=== PATIENT | female | born 1970 | race African-American/Black ===

== ENCOUNTER 2017-02-05 15:22 | Emergency (ER) | payer MEDICARE, OTHER ==
--- NOTE | ~2017-02-05 | CR206 ---
[facility] A Service of [facility] & [facility] RADIOLOGY TEXT RESULTS PATIENT: PARIS LÓPEZ LOCATION: [facility] : 72 UNIT #: [id number] AGE: [address]: Yash Chong MD SEX: F ORDER DR: [id number] [facility] [address] [place], [place] [address] [id number] E MR#: [id number] Acc #: [id number] NAME: PARIS LÓPEZ. : 1970 SEX: F STUDY DATE/TIME: 02/05/2017 15:58 UNIT: [facility] ROOM: STUDY DESCRIPTION: CR Pelvis 1 or 2 Views Attending Physician: Yash Chong M.D. Ordering Physician: Yash Chong M.D. Primary Care Physician: Quinn Dow M.D. MEDICAL IMAGING REPORT This report is preliminary unless electronic signature is present EXAM AP pelvis HISTORY Pelvic pain after fall today. FINDINGS Normal bone alignment of the pelvis. No fracture, joint space narrowing or dislocation. Surgical clips and kadie in the right lower quadrant. IMPRESSION No acute findings. Dictated by... Justen Cowart M.D. THIS IS AN ELECTRONICALLY VERIFIED REPORT Justen Cowart M.D. at 02/06/2017 11:29 PM WING/hernan TD: 02/06/2017 02:34 JOB #: [id number] MEDICAL IMAGING REPORT Page 1 of 1 COPY
--- NOTE | ~2017-02-05 | CR181 ---
[facility] A Service of [facility] & [facility] RADIOLOGY TEXT RESULTS PATIENT: PARIS LÓPEZ LOCATION: [facility] : 72 UNIT #: [id number] AGE: [address]: Yash Chong MD SEX: F ORDER DR: [id number] [facility] [address] [place], [place] [address] [id number] E MR#: [id number] Acc #: [id number] NAME: PARIS LÓPEZ. : 1970 SEX: F STUDY DATE/TIME: 02/05/2017 15:59 UNIT: [facility] ROOM: STUDY DESCRIPTION: CR Lumbar Spine 2 or 3 Views Attending Physician: Yash Chong M.D. Ordering Physician: Yash Chong M.D. Primary Care Physician: Quinn Dow M.D. MEDICAL IMAGING REPORT This report is preliminary unless electronic signature is present EXAM Lumbar spine 3 views HISTORY Back pain after fall today. FINDINGS 3 views of the lumbar spine demonstrate normal bone alignment. No fracture, disc space narrowing or subluxation. Five lumbar-type vertebra. Surgical clips and kadie in the right abdomen. IMPRESSION No acute findings. Lumbar alignment is normal. Dictated by... Justen Cowart M.D. THIS IS AN ELECTRONICALLY VERIFIED REPORT Justen Cowart M.D. at 02/06/2017 11:29 PM WING/hernan TD: 02/06/2017 02:35 JOB #: [id number] MEDICAL IMAGING REPORT Page 1 of 1 COPY
[~2017-02-05 15:22] MED LIST: ALPRAZOLAM PO; AMBIEN PO; AUGMENTIN PO; COUMADIN PO; FLEXERIL PO; HCTZ PO; IMITREX PO; LEVAQUIN PO; LORTAB 10/500 T1 TAB PO; OXYCODONE15 M1 PO; PHENERGAN PO; PRILOSEC PO; PRILOSEC20 M1 PO; SIMVASTATIN40 MG PO; TEMAZEPAM30 MG PO; XANAX1 MG PO; ZITHROMAX PO
== END 2017-02-05 17:11 | disposition home or self-care (01) ==
LOC: CED 15:22
DX: S39.012A Strain of muscle, fascia and tendon of lower back, initial encounter (principal); F17.210 Nicotine dependence, cigarettes, uncomplicated; Z79.899 Other long term (current) drug therapy; Z88.5 Allergy status to narcotic agent; Z88.8 Allergy status to other drugs, medicaments and biological substances; W17.89XA Other fall from one level to another, initial encounter
CPT/HCPCS: 72100; 72170; 96372; 99283; J1885

== ENCOUNTER → 2017-02-18 | Outpatient (CLI) | payer MEDICARE ==
--- NOTE | ~2017-02-18 | MR17 ---
[facility] A Service of [facility] & [facility] RADIOLOGY TEXT RESULTS PATIENT: PARIS LÓPEZ LOCATION: [facility] : 72 UNIT #: [id number] AGE: [address]: Dane Herzog II, MD SEX: F ORDER DR: [id number] [place] [id number] [facility] [place], [place] [address] [id number] O MR#: [id number] Acc #: [id number] NAME: PARIS LÓPEZ : 1970 SEX: F STUDY DATE/TIME: 02/18/2017 16:45 UNIT: [facility] ROOM: STUDY DESCRIPTION: MR Brain WWo Contrast Attending Physician: Dane Herzog II., M.D. Referring Physician: Dane Herzog II., M.D. Ordering Physician: Dane Herzog II., M.D. Primary Care Physician: Quinn Dow M.D. MRI CENTER REPORT This report is preliminary unless electronic signature is present. EXAM MRI brain with and without. HISTORY Migraine headaches, increased for 4 days. Headaches are left-sided. No history of brain surgery. History of colon and ovarian cancer 2001 and 2002. FINDINGS MRI of the brain was performed prior to and following intravenous administration of 12 mL of MultiHance. There is a head CT for comparison from 2008. There is no evidence of a recent ischemic insult on the diffusion series. Midline structures are unremarkable. There is no extraaxial fluid collection. Major intracranial flow voids are maintained. The mastoid air cells are clear. The paranasal sinuses are clear. The ventricles are normal in size and configuration and the monson-white junction is well maintained. Only occasional foci of white matter signal abnormality in the periatrial white matter within the range of normal for age group. This could be related to patient migraine history. Following contrast administration, there is no pathologic intracranial enhancement. There is no intracranial mass lesion or mass effect. There is no evidence for intracranial metastatic disease. IMPRESSION 1. Essentially normal MRI of the brain with and without contrast for age group. No evidence for intracranial metastatic disease. No recent ischemic insult is suspected. [facility] A Service of [facility] & [facility] RADIOLOGY TEXT RESULTS PATIENT: PARIS LÓPEZ [facility] : 72 UNIT #: [id number] AGE: [address]: Dane Herzog II, MD SEX: F ORDER DR: Dictated by... Asya Sandy M.D. THIS IS AN ELECTRONICALLY VERIFIED REPORT Asya Sandy M.D. at 02/20/2017 7:27 AM GRICELDA/vickie TD: 02/19/2017 16:24 JOB #: [id number] MRI CENTER REPORT Page 1 of 1 COPY
== END | disposition home or self-care (01) ==
LOC: CMRI 16:00
DX: G43.909 Migraine, unspecified, not intractable, without status migrainosus (principal)
CPT/HCPCS: 70553; A9577